=== PATIENT | female | born 2000 | race Caucasian/White ===

== ENCOUNTER 2019-09-01 13:55 | Emergency (ER) | payer OTHER ==
[~2019-09-01] VITALS: Ht 165.1 cm; Wt 66.6 kg
[2019-09-01] MEDS ORDERED: IBUP200C25 PO (14:06)
[2019-09-01] MEDS ORDERED: METOCLOPRAMIDE INJ 10MG/2ML VIAL (J2765 PER 1) As Ordered ONE (14:28)
[2019-09-01] MEDS ORDERED: METOCLOPRAMIDE INJ 10MG/2ML VIAL (J2765 PER 1) IV ONE (14:30)
[2019-09-01] MEDS ORDERED: NS 1,000 ML IV ONE (14:30)
[2019-09-01] MEDS ORDERED: ACETAMINOPHEN TAB 650MG DOSE (2X325MG) PO ONE (14:30)
[2019-09-01 14:34] VITALS: BP 117/67
[2019-09-01 14:35] LABS: BASO # 0.1 10^3/uL (0.0-0.2); BASO % 0.3 % (0.0-1.0); EOS # 0.1 10^3/uL (0.0-0.5); EOS % 0.7 % (0.0-3.0); HEMATOCRIT 40.2 % (36.0-47.0); HEMOGLOBIN 13.5 g/dl (12.0-15.5); LYMPH # 2.8 10^3/uL (1.5-5.0); MEAN CORPUSCULAR HGB CONC 33.6 g/dl (32.0-36.5); MEAN CORPUSCULAR VOLUME 86.5 fl (80.0-96.0); NEUTROPHILS # 10.7 10^3/uL (1.5-8.5); NEUTROPHILS % 72.6 % (36.0-66.0); PLATELET COUNT, AUTOMATED 391 10^3/uL (150-450); RED BLOOD COUNT 4.65 10^6/uL (4.00-5.40); WHITE BLOOD COUNT 14.7 10^3/uL (4.0-10.0)
[2019-09-01 14:48] LABS: INR 1.03; PROTHROMBIN TIME 13.2 SECONDS (11.8-14.0)
[2019-09-01 14:49] LABS: PARTIAL THROMBOPLASTIN TIME 24.3 SECONDS (25.0-38.4)
[2019-09-01 15:03] LABS: CK-MB VALUE MASS < 1.0 NG/ML (<3.6); CPK CREATINE PHOSPHOKINASE 70 U/L (26-192); MB/CK RELATIVE INDEX 1.43 (< OR =4); TROPONIN I < 0.02 NG/ML (< 0.10)
--- NOTE | 2019-09-01 15:25 | REP ---
CT brain: 09/01/2019. Indication: Mental status change. Stroke. Technique: Unenhanced axial CT images of the brain were obtained from skull base to vertex with coronal reconstructions provided. Findings: There is no acute intracranial hemorrhage, acute cortical infarction, mass effect, hydrocephalus or acute calvarial fracture. Impression: No acute intracranial process. Electronically Signed by Salvatore Tavera DO 09/01/2019 03:16 P
[2019-09-01 15:35] LABS: HCG, SERUM QUANTITATIVE 1107 MIU/ML
--- NOTE | 2019-09-01 16:06 | ECGEPIP ---
[facility] - ED Test Date: 2019-09-01 Pat Name: LEFTY VANESSA Department: Room: - Gender: Female [employer] Sergeant: : 2000 Requested By: Garrett Villasenor Order Number: [id number] Reading MD: Darell Miller Measurements Intervals [place] Rate: 113 P: 73 ND: 160 QRS: 80 QRSD: 87 T: 62 QT: 314 QTc: 431 Interpretive Statements SINUS TACHYCARDIA Nonspecific ST-T wave abnormalities Comparison tracing not on file Electronically Signed on 09-01-2019 16:06:25 EDT by Darell Miller
[2019-09-01] MEDS ORDERED: REGL10TA6 PO (16:55)
--- NOTE | 2019-09-01 16:57 | REP ---
PELVIC ULTRASOUND: Real-time sonographic evaluation of pelvis performed utilizing transabdominal and endovaginal technique. IUD is seen in the endometrial canal superiorly. Uterus measures 7.5 x 4.2 x 4.9 cm. In the fundal endometrium, there is a ring-like structure with a mean diameter of 3 mm. This could represent an early intrauterine gestation, 4 weeks 6 days gestational age. There is no yolk sac or pole. At this sac size, it would be too early. Right ovary measures 3.0 x 2.1 x 2.3 cm and left ovary 3.7 x 2.6 x 2.7 cm. There is a complex cystic structure in the left ovary which may represent a corpus luteum 1.8 cm in diameter. There is no ovarian torsion bilaterally with duplex Doppler evaluation. There is no free fluid or other evidence of adnexal mass. Recommend followup ultrasound in 2 weeks to document viability. Recommend correlation with serial quantitative beta hCG values to exclude ectopic . Electronically Signed by Joey Sutton MD 09/05/2019 06:50 P
[2019-09-01 17:15] VITALS: BP 101/57
[2019-09-01 18:12] LABS: CHLAMYDIA DNA AMPLIFICATION NEGATIVE (NEGATIVE); GC DNA AMPLIFICATION NEGATIVE (NEGATIVE)
== END 2019-09-01 17:42 | disposition home or self-care (01) ==
LOC: M ED 13:55
DX: O99.351 Diseases of the nervous system complicating pregnancy, first trimester (principal); G43.909 Migraine, unspecified, not intractable, without status migrainosus; O20.0 Threatened abortion; R00.0 Tachycardia, unspecified; O99.331 Smoking (tobacco) complicating pregnancy, first trimester; Z97.5 Presence of (intrauterine) contraceptive device; Z3A.01 Less than 8 weeks gestation of pregnancy
CPT/HCPCS: 70450; 76801; 76817; 80047; 82550; 82553; 84484; 84702; 85025; 85610; 85730; 86850; 86900; 86901; 87491; 87591; 93005; 93041; 93976; 94760; 96361; 96374; 99285; J2765

== ENCOUNTER → 2019-09-04 | Outpatient (CLI) | payer OTHER ==
[~2019-09-04] MED LIST: IBUP200C25 PO; REGL10TA6 PO
== END ==
LOC: M LAB 10:41
PROVIDERS: ATTEND Emergency Medicine
DX: O02.81 Inappropriate change in quantitative human chorionic gonadotropin (hCG) in early pregnancy (principal)

== ENCOUNTER 2019-09-23 12:19 | Emergency (ER) | payer OTHER ==
[~2019-09-23] VITALS: Ht 165.1 cm; Wt 63.2 kg
[2019-09-23] MEDS ORDERED: NS 1,000 ML IV ONE (13:15)
[2019-09-23] MEDS ORDERED: ONDANSETRON 4MG/2ML VIAL IV ONE (13:15)
[2019-09-23 13:30] LABS: BASO # 0.1 10^3/uL (0.0-0.2); BASO % 0.7 % (0.0-1.0); EOS # 0.1 10^3/uL (0.0-0.5); EOS % 0.8 % (0.0-3.0); HEMATOCRIT 39.9 % (36.0-47.0); HEMOGLOBIN 13.4 g/dl (12.0-15.5); LYMPH # 2.3 10^3/uL (1.5-5.0); MEAN CORPUSCULAR HEMOGLOBIN 28.7 pg (27.0-33.0); MEAN CORPUSCULAR HGB CONC 33.6 g/dl (32.0-36.5); MEAN CORPUSCULAR VOLUME 85.4 fl (80.0-96.0); MONO % 8.2 % (0.0-5.0); NEUTROPHILS # 8.2 10^3/uL (1.5-8.5); NEUTROPHILS % 69.9 % (36.0-66.0); PLATELET COUNT, AUTOMATED 318 10^3/uL (150-450); RED BLOOD COUNT 4.67 10^6/uL (4.00-5.40); WHITE BLOOD COUNT 11.7 10^3/uL (4.0-10.0)
--- NOTE | 2019-09-23 13:56 | REP ---
Clinical: Vaginal bleeding. Technique: Transabdominal and transvaginal first trimester obstetrical ultrasound with color Doppler evaluation. Comparison: 09/01/2019. Findings: Ultrasound examination demonstrates single live early intrauterine . Gestational sac with yolk sac and pole identified. CRL of 15 mm corresponds to 7-week 6 days gestational age with estimated date of delivery 05/05/2020. heart rate equals 153 beats per minute. IUD is identified anterior to the gestational sac. Maternal ovaries demonstrate normal vascularity without torsion and 2.0 cm left corpus luteal cyst. Impression: 1. Single live early intrauterine at 7 weeks 6 days gestational age. Complete anatomical assessment should be performed at 19-20 weeks. 2. IUD identified anterior to the gestational sac. Electronically Signed by Timothy Langston MD 09/23/2019 01:49 P
[2019-09-23] MEDS ORDERED: RHOGAM 300 MCG (1500 IU) INJ (J2790) IM ONE (14:00)
[2019-09-23] MEDS ORDERED: MORPHINE 4 MG/ML 1ML VIAL/SYRINGE (J2270) IV ONE (14:00)
[2019-09-23] MEDS ORDERED: IBUP-1022 PO (14:04)
[2019-09-23] MEDS ORDERED: ONDA4TAB6 PO (14:06)
[2019-09-23 16:23] VITALS: BP 115/67
== END 2019-09-23 16:24 | disposition home or self-care (01) ==
LOC: M ED 12:19
DX: O20.0 Threatened abortion (principal); Z97.5 Presence of (intrauterine) contraceptive device; Z3A.01 Less than 8 weeks gestation of pregnancy
CPT/HCPCS: 76801; 76817; 80047; 84702; 85025; 86850; 86900; 86901; 93976; 96361; 96374; 96375; 99284; J2270; J2405; J2790

== ENCOUNTER 2019-12-20 13:16 | Emergency (ER) | payer OTHER ==
[~2019-12-20] VITALS: Ht 165.1 cm; Wt 56.6 kg
[~2019-12-20 13:16] MED LIST changes: +IBUP-1022 PO; +ONDA4TAB6 PO
[2019-12-20] MEDS ORDERED: PARA1IUD IU (13:24)
[2019-12-20 14:12] LABS: BASO # 0.1 10^3/uL (0.0-0.2); BASO % 0.9 % (0.0-1.0); EOS # 0.1 10^3/uL (0.0-0.5); EOS % 0.7 % (0.0-3.0); HEMATOCRIT 42.8 % (36.0-47.0); HEMOGLOBIN 14.4 g/dl (12.0-15.5); LYMPH # 2.5 10^3/uL (1.5-5.0); LYMPH % 27.5 % (24.0-44.0); MEAN CORPUSCULAR HGB CONC 33.6 g/dl (32.0-36.5); MEAN CORPUSCULAR VOLUME 86.3 fl (80.0-96.0); MONO # 0.6 10^3/uL (0.0-0.8); MONO % 6.3 % (0.0-5.0); NEUTROPHILS # 5.8 10^3/uL (1.5-8.5); NEUTROPHILS % 64.3 % (36.0-66.0); PLATELET COUNT, AUTOMATED 416 10^3/uL (150-450); RED BLOOD COUNT 4.96 10^6/uL (4.00-5.40); WHITE BLOOD COUNT 9.1 10^3/uL (4.0-10.0)
[2019-12-20 14:35] LABS: ALBUMIN 4.6 GM/DL (3.2-5.2); BILIRUBIN,DIRECT 0.1 MG/DL (0.0-0.2); BILIRUBIN,TOTAL 0.6 MG/DL (0.2-1.0); TOTAL PROTEIN 7.7 GM/DL (6.4-8.2)
[2019-12-20] MEDS ORDERED: ISOVUE-370 76% 100ML VIAL As Ordered ONE (14:56)
[2019-12-20] MEDS ORDERED: NS 1,000 ML IV ONE (15:00)
[2019-12-20] MEDS ORDERED: GI COCKTAIL 50ML BTL(HYOSCYAMINE/MAALOX/LIDOCAINE VISCOUS)(1:3:1) PO ONE (15:00)
[2019-12-20 15:47] LABS: CK-MB VALUE MASS < 1.0 NG/ML (<3.6); CPK CREATINE PHOSPHOKINASE 92 U/L (26-192); FREE T4 1.21 NG/DL (0.78-1.33); MB/CK RELATIVE INDEX 1.09 (< OR =4); TROPONIN I < 0.02 NG/ML (< 0.10)
--- NOTE | 2019-12-20 15:55 | REPVR ---
PROCEDURE INFORMATION: Exam: CT Abdomen And Pelvis With Contrast Exam date and time: 12/20/2019 3:18 PM Age: 19 years old Clinical indication: Abdominal pain; Other: Diffuse abd pain, "lost iud", n/v, rlq ttp TECHNIQUE: Imaging protocol: Computed tomography of the abdomen and pelvis with intravenous contrast. Axial, coronal and sagittal reformatted images were created and reviewed. Radiation optimization: All CT scans at this facility use at least one of these dose optimization techniques: automated exposure control; mA and/or kV adjustment per patient size (includes targeted exams where dose is matched to clinical indication); or iterative reconstruction. Contrast material: ISOVUE 370; Contrast volume: 100 ml; Contrast route: INTRAVENOUS (IV); COMPARISON: No relevant prior studies available. FINDINGS: Liver: Mild hepatic steatosis. Gallbladder and bile ducts: No radiodense gallstones. No biliary ductal dilatation. Pancreas: Unremarkable. Spleen: Unremarkable. Adrenals: Unremarkable. Kidneys and ureters: No mass. No radiodense calculi. No hydronephrosis. Stomach and bowel: No bowel wall thickening. No obstruction. No pneumatosis. Appendix: Normal. Intraperitoneal space: No free fluid. No organized fluid collection. No free air. Vasculature: Unremarkable. No aneurysm. Lymph nodes: No pathologically enlarged lymph nodes. Urinary bladder: Unremarkable as visualized. Reproductive: Intrauterine device in the lower uterine segment. Bones/joints: No acute osseous abnormality. Soft tissues: Unremarkable. IMPRESSION: 1. Intrauterine device in the lower uterine segment. 2. Additional findings, as above. Electronically signed by: Oli Patel On 12/20/2019 15:54:54 PM
--- NOTE | 2019-12-20 15:56 | REPVR ---
PROCEDURE INFORMATION: Exam: XR Chest, 2 Views Exam date and time: 12/20/2019 3:41 PM Age: 19 years old Clinical indication: Pain; Other: Abd; Additional info: Abdominal pain TECHNIQUE: Imaging protocol: XR of the chest Views: 2 views. COMPARISON: No relevant prior studies available. FINDINGS: Lungs: Unremarkable. No consolidation. Pleural space: Unremarkable. No pleural effusion. No pneumothorax. Heart/Mediastinum: Unremarkable. No cardiomegaly. Bones/joints: Unremarkable. IMPRESSION: No acute radiographic findings. Electronically signed by: Oli Patel On 12/20/2019 15:56:00 PM
[2019-12-20 16:19] LABS: AMPHETAMINES LEVEL URINE NEGATIVE (NEGATIVE); BARBITURATES URINE NEGATIVE (NEGATIVE); BENZODIAZEPINES URINE NEGATIVE (NEGATIVE); CANNABINOIDS URINE NEGATIVE (NEGATIVE); COCAINE METABOLITE URINE NEGATIVE (NEGATIVE); METHADONE URINE NEGATIVE (NEGATIVE); OPIATES URINE NEGATIVE (NEGATIVE); PHENCYCLIDINE URINE NEGATIVE (NEGATIVE)
[2019-12-20] MEDS ORDERED: MECLIZINE 25 MG TABLET PO ONE (17:00)
[2019-12-20] MEDS ORDERED: ONDA4TAB6 PO (17:26)
[2019-12-20] MEDS ORDERED: MECL1TAB31 PO (17:26)
[2019-12-20 17:39] VITALS: BP 109/65
--- NOTE | 2019-12-20 20:44 | ECGEPIP ---
[facility] - ED Test Date: 2019-12-20 Pat Name: LEFTY VANESSA Department: Room: - Gender: Female Termination Clerk: MADELINE : 2000 Requested By: DONNA Davis PA-C Order Number: [id number] Reading MD: Skyler Rivero Measurements Intervals [place] Rate: 68 P: 67 VA: 148 QRS: 78 QRSD: 87 T: 71 QT: 399 QTc: 427 Interpretive Statements SINUS RHYTHM WITH SINUS ARRHYTHMIA BASELINE ARTIFACT AFFECTS INTERPRETATION RATE CHANGE COMPARED TO 09/01/19 Electronically Signed on 12-20-2019 20:44:02 EDT by Skyler Rivero
[2020-01-29] MEDS ORDERED: SYNT50TA PO (09:36)
== END 2019-12-20 17:40 | disposition home or self-care (01) ==
LOC: M ED 13:16
DX: R10.13 Epigastric pain (principal); R42 Dizziness and giddiness; R11.2 Nausea with vomiting, unspecified; G43.909 Migraine, unspecified, not intractable, without status migrainosus; E03.9 Hypothyroidism, unspecified; Z97.5 Presence of (intrauterine) contraceptive device; Z79.3 Long term (current) use of hormonal contraceptives
CPT/HCPCS: 71046; 74177; 80047; 80076; 80307; 81001; 82550; 82553; 83690; 84439; 84443; 84484; 84702; 85025; 93005; 96360; 96361; 99284; Q9967